=== PATIENT | male | born 1960 | race Caucasian/White ===

== ENCOUNTER 2016-08-12 08:20 | Inpatient (IN) | payer BC ==
[2016-08-12] VITALS (385 sets, daily range): BP systolic 120–128; BP diastolic 77–84; PULSE 89–95; TEMP 98.6–99.7; O2SAT 79–98
[~2016-08-12] VITALS: Ht 170.2 cm; Wt 92.3 kg
[2016-08-12 09:38] LABS: HEMATOCRIT 51.4 % (42.0-52.0); MEAN CELL VOLUME 93 fl (80.0-100.0); MEAN CORPUSCULAR HEMOGLOBIN 34 pg (27.0-31.0); MEAN CORPUSCULAR HGB CONC 36 g/dl (33.0-37.0); MEAN PLATELET VOLUME 10.8 fl (7.4-10.4); PLATELET COUNT 106 K/mm3 (130-400); RED BLOOD COUNT 5.53 M/mm3 (4.20-5.60); REDCELL DISTRIBUTION WIDTH-CV 12.4 % (11.5-14.5)
[2016-08-12 09:45] LABS: INR 1.2 (0.8-3.0); PROTHROMBIN TIME 13.2 SECONDS (9.7-12.8)
[2016-08-12 09:46] LABS: ADJUSTED CALCIUM 8.7 mg/dL (8.4-10.2); ALANINE AMINOTRANSFERASE 100 U/L (21-72); ALBUMIN 4.3 gm/dL (3.5-5.0); ALKALINE PHOSPHATASE 95 U/L (50-136); ANION GAP 17 mmol/L (7-16); BILIRUBIN,TOTAL 1.9 mg/dL (0.0-1.0); BLOOD UREA NITROGEN 21 mg/dL (9-20); CALCIUM 8.9 mg/dL (8.4-10.2); CARBON DIOXIDE 19 mmol/L (22-30); CHLORIDE 97 mmol/L (98-107); GLUCOSE 118 mg/dL (74-106); POTASSIUM 4.1 mmol/L (3.4-5.0); SODIUM 133 mmol/L (137-145); TOTAL PROTEIN 8.4 gm/dL (6.4-8.2)
[2016-08-12 09:50] LABS: HEMOGLOBIN 18.7 g/dl (13.5-18.0)
[2016-08-12 09:51] LABS: ADD PATHOLOGY DIFF REVIEW NO
[2016-08-12 09:58] LABS: TROPONIN-I < 0.012 ng/mL (0.000-0.034)
[2016-08-12 10:20] LABS: BAND 32 % (0-10); NEUTROPHILS 29 % (42.0-75.2); TOTAL CELLS COUNTED 100
[2016-08-12 13:23] LABS: INFLUENZA B NEGATIVE
[2016-08-13] VITALS (837 sets, daily range): BP systolic 106–126; BP diastolic 66–90; PULSE 58–81; TEMP 97.4–98.9; O2SAT 84–98
[2016-08-13 05:43] LABS: ADD PATHOLOGY DIFF REVIEW NO
[2016-08-13 05:49] LABS: MEAN CELL VOLUME 97 fl (80.0-100.0); MEAN CORPUSCULAR HEMOGLOBIN 34 pg (27.0-31.0); MEAN CORPUSCULAR HGB CONC 35 g/dl (33.0-37.0); MEAN PLATELET VOLUME 10.5 fl (7.4-10.4); PLATELET COUNT 78 K/mm3 (130-400); RED BLOOD COUNT 4.86 M/mm3 (4.20-5.60); WHITE BLOOD COUNT 4.6 K/mm3 (4.8-10.8)
[2016-08-13 05:53] LABS: HEMOGLOBIN 16.6 g/dl (13.5-18.0)
[2016-08-13 05:56] LABS: ADJUSTED CALCIUM 8.2 mg/dL (8.4-10.2); ALANINE AMINOTRANSFERASE 88 U/L (21-72); ALBUMIN 3.6 gm/dL (3.5-5.0); ALKALINE PHOSPHATASE 88 U/L (50-136); ANION GAP 13 mmol/L (7-16); BILIRUBIN,TOTAL 1.1 mg/dL (0.0-1.0); BLOOD UREA NITROGEN 13 mg/dL (9-20); CALCIUM 7.9 mg/dL (8.4-10.2); CARBON DIOXIDE 22 mmol/L (22-30); CHLORIDE 102 mmol/L (98-107); GLUCOSE 94 mg/dL (74-106); POTASSIUM 3.8 mmol/L (3.4-5.0); SODIUM 137 mmol/L (137-145); TOTAL PROTEIN 7.1 gm/dL (6.4-8.2)
[2016-08-13 06:11] LABS: TROPONIN-I < 0.012 ng/mL (0.000-0.034)
[2016-08-13 07:32] LABS: BAND 22 % (0-10); NEUTROPHILS 35 % (42.0-75.2); TOTAL CELLS COUNTED 100
[2016-08-14] VITALS (374 sets, daily range): BP systolic 108–133; BP diastolic 56–113; PULSE 60–92; TEMP 97.4–98.4; O2SAT 85–98
[2016-08-15 03:24] VITALS: BP 130/99; PULSE 65; TEMP 97.4
[2016-08-15 07:22] VITALS: BP 129/90; PULSE 74; TEMP 97.3
[2016-08-15 12:06] VITALS: BP 138/90; PULSE 85
[2016-08-15 15:15] VITALS: BP 134/81; PULSE 89; TEMP 98.1
[2016-08-15 20:16] VITALS: BP 149/77; PULSE 80; TEMP 98.4
[2016-08-15 23:11] VITALS: BP 131/84; PULSE 80; TEMP 97.9
[2016-08-16 03:28] VITALS: BP 144/50; PULSE 70; TEMP 97.6
[2016-08-16 08:23] VITALS: BP 128/92; PULSE 51; TEMP 98.4
[2016-08-16 10:58] VITALS: BP 139/91; PULSE 71; TEMP 97.9
[2016-08-16 15:28] VITALS: BP 144/95; PULSE 87; TEMP 97.3
[2016-08-16 20:32] VITALS: BP 134/86; PULSE 82; TEMP 97.7
[2016-08-16 23:37] VITALS: BP 127/82; PULSE 74; TEMP 97.8
[2016-08-17 04:03] VITALS: BP 111/89; PULSE 72; TEMP 97.6
[2016-08-17 08:39] VITALS: BP 121/87; PULSE 79; TEMP 97.5
[2016-08-17] MEDS ORDERED: ELIQUIS 5MG PO (10:40)
[2016-08-17] MEDS ORDERED: BETAPACE 80MG80 MG PO (10:41)
[2016-08-17] MEDS ORDERED: ASPIRIN E.C. 8181 MG PO (10:43)
[2016-08-17] MEDS ORDERED: PREDNISONE 5MG5 MG PO (10:44)
[2016-08-17] MEDS ORDERED: RT ADVAIR HFA 1112 G IH (10:45)
[2016-10-09] MEDS ORDERED: ELIQUIS 5MG PO (07:59)
[2016-10-09] MEDS ORDERED: ASPIRIN E.C. 8181 MG PO (08:11)
[2016-10-09] MEDS ORDERED: BETAPACE160 MG PO (08:12)
== END 2016-08-17 12:26 | disposition home or self-care (01) | DRG 308 ==
LOC: COL.ER 08:20 → IMCU 10:33 → MEDICAL 10:33
PROVIDERS: Family Medicine; Internal Medicine
PROC: 5A2204Z Restoration of Cardiac Rhythm, Single (ICD-10-PCS; principal; 2016-08-14)
DX: I48.0 Paroxysmal atrial fibrillation (principal); E43 Unspecified severe protein-calorie malnutrition; J44.1 Chronic obstructive pulmonary disease with (acute) exacerbation; F17.210 Nicotine dependence, cigarettes, uncomplicated; E66.01 Morbid (severe) obesity due to excess calories; Z68.32 Body mass index [BMI] 32.0-32.9, adult; M19.042 Primary osteoarthritis, left hand; M19.041 Primary osteoarthritis, right hand
CPT/HCPCS: 99223-AI; 99231-AI; 99232-AI; 99238; A9502; J0696; J1450; J1650; J1940; J2250; J2270; J2704; J2765; J2785; J2930; J7030; J7050; J7512; Q9967

== ENCOUNTER → 2016-10-09 | Day surgery (SDC) | payer BC ==
[~2016-10-09] VITALS: Ht 170.2 cm; Wt 93.0 kg
[2016-10-09] VITALS (12 sets, daily range): BP systolic 103–140; BP diastolic 70–95; PULSE 55–72; TEMP 97.7
[~2016-10-09] MED LIST: ASPIRIN E.C. 8181 MG PO; BETAPACE 80MG80 MG PO; BETAPACE160 MG PO; ELIQUIS 5MG PO; PREDNISONE 5MG5 MG PO; PREVACID24HROTC PO; RT ADVAIR HFA 1112 G IH
[2016-10-09 08:31] LABS: INR 1.2 (0.8-3.0); PROTHROMBIN TIME 13.3 SECONDS (9.7-12.8)
[2016-10-09 08:34] LABS: POTASSIUM 4.2 mmol/L (3.4-5.0)
[2016-10-09 09:06] LABS: THYROID STIMULATING HORMONE 1.71 uIU/mL (0.465-4.680)
== END | disposition home or self-care (01) ==
LOC: COL.CAR 07:23
PROVIDERS: Internal Medicine Cardiovascular Disease
DX: I48.0 Paroxysmal atrial fibrillation (principal); I51.7 Cardiomegaly; G47.33 Obstructive sleep apnea (adult) (pediatric); J43.9 Emphysema, unspecified; Z79.01 Long term (current) use of anticoagulants; Z87.891 Personal history of nicotine dependence; Z82.49 Family history of ischemic heart disease and other diseases of the circulatory system
CPT/HCPCS: J2250; J3010; J7030

== ENCOUNTER 2016-10-28 11:09 | Emergency (ER) | payer BC ==
[~2016-10-28] VITALS: Ht 170.2 cm; Wt 93.2 kg
[~2016-10-28 11:09] MED LIST changes: -PREVACID24HROTC PO
[2016-10-28 11:12] VITALS: TEMP 97
[2016-10-28 11:39] LABS: BASO # 0.1 (0.0-0.2); BASO % 0.5 % (0.0-2.0); EOS % 0.3 % (0-4.0); GRAN # 10.7 (1.4-6.5); GRAN % 75.3 % (42.2-75.2); LYMPH # 2.2 (1.2-3.4); LYMPH % 15.7 % (20.0-51.0); MEAN CELL VOLUME 96 fl (80.0-100.0); MEAN CORPUSCULAR HGB CONC 36 g/dl (33.0-37.0); MEAN PLATELET VOLUME 9.5 fl (7.4-10.4); MONO # 1.1 (0.1-0.6); MONO % 7.8 % (1.7-9.3); PLATELET COUNT 254 K/mm3 (130-400); RED BLOOD COUNT 5.65 M/mm3 (4.20-5.60); REDCELL DISTRIBUTION WIDTH-CV 12.2 % (11.5-14.5); WHITE BLOOD COUNT 14.2 K/mm3 (4.8-10.8)
[2016-10-28 11:40] LABS: HEMATOCRIT 54.4 % (42.0-52.0); HEMOGLOBIN 19.6 g/dl (13.5-18.0); MEAN CORPUSCULAR HEMOGLOBIN 35 pg (27.0-31.0)
[2016-10-28 12:22] LABS: ADJUSTED CALCIUM 8.4 mg/dL (8.4-10.2); ALANINE AMINOTRANSFERASE 62 U/L (21-72); ALBUMIN 4.6 gm/dL (3.5-5.0); ALKALINE PHOSPHATASE 108 U/L (50-136); ANION GAP 19 mmol/L (7-16); BILIRUBIN,TOTAL 1.7 mg/dL (0.0-1.0); BLOOD UREA NITROGEN 12 mg/dL (9-20); CALCIUM 8.9 mg/dL (8.4-10.2); CARBON DIOXIDE 19 mmol/L (22-30); CHLORIDE 103 mmol/L (98-107); GLUCOSE 143 mg/dL (74-106); POTASSIUM 4.4 mmol/L (3.4-5.0); SODIUM 140 mmol/L (137-145); TOTAL PROTEIN 7.9 gm/dL (6.4-8.2)
[2016-10-28 12:34] LABS: B-TYPE NATRIURETIC PEPTIDE 349 pg/mL (0-125)
[2016-10-28 12:36] LABS: TROPONIN-I < 0.012 ng/mL (0.000-0.034)
[2016-10-28 13:18] LABS: LIPASE 572 U/L (23-300)
[2016-10-28] MEDS ORDERED: PREVACID24HROTC PO (15:28)
[2016-10-28 15:30] VITALS: BP 149/109; PULSE 65
== END 2016-10-28 15:51 | disposition home or self-care (01) ==
LOC: COL.ER 11:09
PROVIDERS: Emergency Medicine
DX: R07.9 Chest pain, unspecified (principal); K85.90 Acute pancreatitis without necrosis or infection, unspecified; I48.91 Unspecified atrial fibrillation; R11.0 Nausea; Z79.01 Long term (current) use of anticoagulants; R19.7 Diarrhea, unspecified
CPT/HCPCS: C9113; J2270; J2550; J7030

== ENCOUNTER 2018-05-12 10:13 | Inpatient (IN) | payer BC ==
[~2018-05-12] VITALS: Ht 170.2 cm; Wt 88.0 kg
[2018-05-12] VITALS (355 sets, daily range): BP systolic 136–162; BP diastolic 108; PULSE 51–113; TEMP 98–98.5; O2SAT 87–94
[~2018-05-12 10:13] MED LIST changes: +PREVACID24HROTC PO
[2018-05-12] MEDS ORDERED: GLUCOPHAGE500 MG/TAB PO (10:42)
[2018-05-12] MEDS ORDERED: DOXYCYCLINE HY100 MG PO (10:42)
[2018-05-12 11:48] LABS: BASO # 0.1 (0.0-0.2); BASO % 0.5 % (0.0-2.0); EOS % 0.1 % (0-4.0); GRAN # 10.3 (1.4-6.5); GRAN % 81.3 % (42.2-75.2); LYMPH # 1.2 (1.2-3.4); LYMPH % 9.6 % (20.0-51.0); MEAN CELL VOLUME 97 fl (80.0-100.0); MEAN CORPUSCULAR HGB CONC 35 g/dl (33.0-37.0); MEAN PLATELET VOLUME 9.9 fl (7.4-10.4); MONO % 8.1 % (1.7-9.3); PLATELET COUNT 189 K/mm3 (130-400); RED BLOOD COUNT 5.66 M/mm3 (4.20-5.60); REDCELL DISTRIBUTION WIDTH-CV 11.5 % (11.5-14.5)
[2018-05-12 11:55] LABS: HEMATOCRIT 55.1 % (42.0-52.0); HEMOGLOBIN 19.5 g/dl (13.5-18.0); MEAN CORPUSCULAR HEMOGLOBIN 34 pg (27.0-31.0)
[2018-05-12 11:58] LABS: CREATININE, serum 0.54 mg/dL (0.66-1.25); POTASSIUM 4.6 mmol/L (3.4-5.0); TOTAL PROTEIN 8.1 gm/dL (6.4-8.2)
[2018-05-12 12:45] LABS: COLLECTION METHOD CLEAN CATCH
[2018-05-12 12:51] LABS: MUCOUS Present /lpf; PH 7 (5-8); SQUAMOUS EPITHELIAL 0-2 /hpf; URINE APPEARANCE Clear; URINE BACTERIA None Seen /hpf; URINE BILIRUBIN Negative (NEGATIVE); URINE BLOOD 1+ (NEGATIVE); URINE COLOR Yellow; URINE GLUCOSE 3+ (NEGATIVE); URINE KETONE Trace (NEGATIVE); URINE LEUKOCYTE ESTERASE Negative (NEGATIVE); URINE NITRATE Negative (NEGATIVE); URINE PROTEIN(semi-quant) 3+ (NEGATIVE); URINE RBC 0-2 /hpf; URINE UROBILINOGEN Negative (NEGATIVE)
[2018-05-12 15:05] LABS: INR 1.3 (0.8-3.0); PROTHROMBIN TIME 14.9 SECONDS (9.7-12.8)
[2018-05-12 15:07] LABS: PARTIAL THROMBOPLASTIN TIME 46.4 SECONDS (26.0-37.0)
[2018-05-12 15:24] LABS: MAGNESIUM 1.3 mg/dL (1.6-2.3)
[2018-05-12 15:43] LABS: TROPONIN-I 0.018 ng/mL (0.000-0.034)
--- NOTE | 2018-05-12 16:00 | NUR ---
Patient arrives from ED. He ambulates in room. VS WNL. HR 110 and irregular. Cardizem gtt infusing at 5 mg/hr. Patient oriented to room and call light. Will continue to monitor.
--- NOTE | 2018-05-12 17:25 | NUR ---
Spoke with Dr. Clark regarding consult. Orders received to initiate sotalol tonight, keep npo at midnight, echo tomorrow and plan for poss. cardioversion tomorrow if patient remains in afib.
--- NOTE | 2018-05-12 19:01 | NUR ---
Bedside report given to NIC Hicks. Patient lying in bed VS WNL. He c/o abdominal pain and then states he is "starving." Plan of care discussed. Care turned over at this time.
--- NOTE | 2018-05-12 19:03 | NUR ---
Bedside report received from NIC Tong.
--- NOTE | 2018-05-12 20:00 | NUR ---
Shift assessment complete at this time. Patient continues to complain of pain in his abdomen in the epigastric region. Rates pain a 5-6/10 consistently. Patient has no other needs at this time. Will continue to monitor, Call light within reach.
[2018-05-13] VITALS (749 sets, daily range): BP systolic 85–133; BP diastolic 60–102; PULSE 61–90; TEMP 97.3–98.7; O2SAT 79–100
--- NOTE | 2018-05-13 | NUR ---
Patient resting in bed at this time. Still has complaints of pain rated 5/10 in the abdomen. Morphine provided. No other needs at this time. Will continue to monitor. Call light within reach.
--- NOTE | 2018-05-13 04:00 | NUR ---
Patient awake at this time resting in bed. Complaints of 5/10 pain in his abdomen continuously. Morphine to be provided. Patient has no other needs at this time. Will continue to monitor. Call light within reach.
[2018-05-13 05:36] LABS: BASO # 0.1 (0.0-0.2); BASO % 0.7 % (0.0-2.0); EOS # 0.2 (0.0-0.7); EOS % 1.7 % (0-4.0); GRAN # 8.1 (1.4-6.5); GRAN % 68.3 % (42.2-75.2); HEMATOCRIT 51.1 % (42.0-52.0); LYMPH # 2.2 (1.2-3.4); LYMPH % 18.2 % (20.0-51.0); MEAN CORPUSCULAR HGB CONC 34 g/dl (33.0-37.0); MEAN PLATELET VOLUME 9.8 fl (7.4-10.4); MONO # 1.2 (0.1-0.6); MONO % 10.4 % (1.7-9.3); PLATELET COUNT 186 K/mm3 (130-400); RED BLOOD COUNT 4.97 M/mm3 (4.20-5.60); REDCELL DISTRIBUTION WIDTH-CV 12.1 % (11.5-14.5)
[2018-05-13 05:37] LABS: HEMOGLOBIN 17.1 g/dl (13.5-18.0); MEAN CORPUSCULAR HEMOGLOBIN 34 pg (27.0-31.0)
[2018-05-13 05:38] LABS: MEAN CELL VOLUME 103 fl (80.0-100.0)
[2018-05-13 05:47] LABS: ALBUMIN 3.3 gm/dL (3.5-5.0); BILIRUBIN,TOTAL 3.1 mg/dL (0.0-1.0); CALCIUM 7.6 mg/dL (8.4-10.2); CREATININE, serum 0.68 mg/dL (0.66-1.25); MAGNESIUM 1.3 mg/dL (1.6-2.3); POTASSIUM 4.1 mmol/L (3.4-5.0)
--- NOTE | 2018-05-13 07:05 | NUR ---
Bedside report given to NIC Moody
--- NOTE | 2018-05-13 09:52 | NUR ---
All sedation meds were administered as VORB with Eduardo KENDALL at bedside for elective CV. View Procedure Event Log (Paper) in chart with Eduardo KENDALL and Sedation RN signatures for procedure events. Pt tolerated procedure will with no complications. NSR noted on bedside monitor. 12 Lead EKG Obtained. Plan for pt to transfer to floor
--- NOTE | 2018-05-13 10:16 | NUR ---
Plan:Return home with DTR Michelle Cruz . PT denies having DPOA and declined setup. Assess: PT reports that he resided here in town and uses a nebulizer daily but no medical equip. PCP-Unknown follow-up stated to be with Dr Clark. Action: Continue to follow care.
--- NOTE | 2018-05-13 12:57 | NUR ---
Pt states discomfort in abdomen with mild nausea after eating 100% if clear liquid tray. Emesis bag provided. Will continue to monitor.
--- NOTE | 2018-05-13 14:09 | NUR ---
Telephone report given to Reuben LUCERO. Pt to transfer to room 307
--- NOTE | 2018-05-13 14:36 | NUR ---
Pt arrived on Medical Unit. Pt ambulated to wheel chair for transport. Pt ambulated without assistance from wheelchair back to bed in Rm 307. Reuben LUCERO at bedside to recieve pt.
--- NOTE | 2018-05-13 18:36 | NUR ---
Since arriving to the floor the pt has been resting quietly. He has had intermittent pain in his ABD. Pain medication administered on JUL. Pt is sitting up in the bed watching TV at this time and he denies further needs. Call light within reach.
--- NOTE | 2018-05-13 22:19 | NUR ---
pt resting in bed. reports pian 10/10 in abd abd back, causing nausea. pain causing pt to waken from sleep. prn meds given. tele on. pt reports loose stool at the consistancy of liquid q 3-4 hours. pt reports no needs at this time. call light in reach
[2018-05-14] VITALS (10 sets, daily range): BP systolic 100–136; BP diastolic 50–99; PULSE 73–107; TEMP 97–97.7
[2018-05-14 00:14] LABS: FOLATE (FOLIC ACID) 19.7 ng/mL (7.0-31.4)
--- NOTE | 2018-05-14 01:09 | NUR ---
pt urnine is a dark [place]ber[place]. small amounts at a time.
[2018-05-14 02:04] LABS: COLLECTION METHOD CLEAN CATCH
[2018-05-14 02:14] LABS: MUCOUS Present /lpf; PH 5 (5-8); SQUAMOUS EPITHELIAL 0-2 /hpf; URINE APPEARANCE Clear; URINE BACTERIA None Seen /hpf; URINE BILIRUBIN Positive (NEGATIVE); URINE BLOOD 2+ (NEGATIVE); URINE COLOR Amber; URINE GLUCOSE Negative (NEGATIVE); URINE KETONE Negative (NEGATIVE); URINE LEUKOCYTE ESTERASE Negative (NEGATIVE); URINE NITRATE Negative (NEGATIVE); URINE PROTEIN(semi-quant) 2+ (NEGATIVE); URINE UROBILINOGEN >=4.0 mg/dL (NEGATIVE)
[2018-05-14 06:06] LABS: BASO # 0.1 (0.0-0.2); BASO % 0.6 % (0.0-2.0); EOS # 0.3 (0.0-0.7); GRAN % 63.7 % (42.2-75.2); HEMATOCRIT 47.8 % (42.0-52.0); HEMOGLOBIN 15.7 g/dl (13.5-18.0); LYMPH # 2.4 (1.2-3.4); LYMPH % 22.3 % (20.0-51.0); MEAN CELL VOLUME 105 fl (80.0-100.0); MEAN CORPUSCULAR HEMOGLOBIN 34 pg (27.0-31.0); MEAN CORPUSCULAR HGB CONC 33 g/dl (33.0-37.0); MEAN PLATELET VOLUME 10.2 fl (7.4-10.4); MONO % 9.5 % (1.7-9.3); PLATELET COUNT 171 K/mm3 (130-400); RED BLOOD COUNT 4.56 M/mm3 (4.20-5.60); REDCELL DISTRIBUTION WIDTH-CV 11.9 % (11.5-14.5)
[2018-05-14 06:21] LABS: ALBUMIN 3.2 gm/dL (3.5-5.0); BILIRUBIN,TOTAL 3.9 mg/dL (0.0-1.0); CALCIUM 7.1 mg/dL (8.4-10.2); CREATININE, serum 0.61 mg/dL (0.66-1.25); MAGNESIUM 1.8 mg/dL (1.6-2.3); POTASSIUM 4.1 mmol/L (3.4-5.0); TOTAL PROTEIN 6.8 gm/dL (6.4-8.2)
--- NOTE | 2018-05-14 07:50 | NUR ---
Assessment complete. Pt is AXO X3, states he has pain in his L flank area rated at a 5/10. Breathing is even and unlabored on room air. Tele on. RH infusing, remains free of complications, and is CDI. Pt is sitting up in the bed watching TV at this time and he denies further needs. Call light within reach, will continue to monitor.
--- NOTE | 2018-05-14 18:16 | NUR ---
Pt has been resting on and off throughout the day. Has had constant pain in his back and ABD. Pain medication administered on JUL. Pt is sitting up in the chair watching TV at this time and he denies further needs. Call light within reach.
--- NOTE | 2018-05-14 19:00 | NUR ---
Report given to NIC Griffith.
--- NOTE | 2018-05-14 23:12 | NUR ---
pt resting in bed, reports 8-910 lower flank pain bilaateral side. prn meds given. pt A+Ox4. stated "at this point, tomorrow i would like to eat rather than pain meds"
[2018-05-15] VITALS (8 sets, daily range): BP systolic 116–138; BP diastolic 78–97; PULSE 60–88; TEMP 97.6–98.3
--- NOTE | 2018-05-15 | NUR ---
shift assessment complete, pt sleeping in bed. A+Ox4. pt reports no needs at this time. call light in reach
--- NOTE | 2018-05-15 05:43 | NUR ---
pt had an unevenful night. had a BM. 6-8/10 pain in back. pt slept off and on throughout night. urine is dark. pt reports no needs at this time. call light in reach
--- NOTE | 2018-05-15 06:44 | NUR ---
reports given to Dana LUCERO.
--- NOTE | 2018-05-15 07:40 | NUR ---
Pt is A+Ox3, pleasant, c/o sharp pain to abdomen, worsened with movement, pain meds provided. Physical assessment completed. IV to RH s redness/swelling. Discussed NPO, bowel rest, pancreatitis, and afib patho and treatment. All questions answered. No further needs, call light in reach
--- NOTE | 2018-05-15 12:42 | NUR ---
pT observed sleeping several times, he reports waking suddenly in pain. He is hungry and wants food, but understands NPO status and bowel rest reasoning. Call [facility]
--- NOTE | 2018-05-15 14:00 | NUR ---
Report given to Reuben LUCERO. Pt has been asking for pain meds regularly through shift, rests in between doses. No further needs, vitals stable, pt n afib but asymptomatic
--- NOTE | 2018-05-15 17:45 | NUR ---
Since taking over cares the pt has been resting quietly. He has had constant pain to his ABD. Pain medication administered on JUL. Pt is sitting up in the bed watching TV at this time and he denies further needs. Call light within reach.
--- NOTE | 2018-05-15 19:27 | NUR ---
Report given to NIC Quiros.
[2018-05-16] VITALS (12 sets, daily range): BP systolic 100–153; BP diastolic 76–118; PULSE 57–112; TEMP 97.4–98.5
--- NOTE | 2018-05-16 01:37 | NUR ---
THE PT HAD C\O PAIN WHEN BEDSIDE REPORT WAS DONE, JAYDEN GAVE HIM A DOSE OF MEDS. REPOSITIONED HIS IV IT HAD SLIGHTLY CRIMPED. FLUSHES WELL. PROCALAMINE RUNNING. THE PT STATED THAT HE HASN'T EATEN IN DAYS AND WANTS TO EAT. THE PT IS NPO, ACCUCHECK WAS 119, THEN 111. HE STATED THAT HE WONDERS HOW IT WILL SPIKE WHEN HE IS ALLOWED TO EAT. HE VERBALIZED THAT HE HAD DIARRHEA X 2. HE WAS UP TO THE BR WITHOUT ASSIST, GAIT STEADY. HE CALLS FOR MORE DILAUDID ABOUT Q 2 - 3 HRS. RATING HIS PAIN FROM A 4-8\10. TELE CONTINUES A FIB, 90-105. HE APPEARS TO SLEEP IN NAPS.
--- NOTE | 2018-05-16 03:12 | NUR ---
THE PT AROUSED BRIEFLY WHEN NEW BOTTLE OF PROCANAMINE HUNG. HAD VOIDED, URINAL EMPTIED.
--- NOTE | 2018-05-16 05:05 | NUR ---
BEDRESTING WITH EYES CLOSED, SIDE LYING.
[2018-05-16 05:58] LABS: BASO % 0.3 % (0.0-2.0); EOS # 0.3 (0.0-0.7); EOS % 2.5 % (0-4.0); GRAN % 70.6 % (42.2-75.2); HEMATOCRIT 48.8 % (42.0-52.0); HEMOGLOBIN 16.4 g/dl (13.5-18.0); LYMPH # 1.5 (1.2-3.4); LYMPH % 15.1 % (20.0-51.0); MEAN CELL VOLUME 102 fl (80.0-100.0); MEAN CORPUSCULAR HEMOGLOBIN 34 pg (27.0-31.0); MEAN CORPUSCULAR HGB CONC 34 g/dl (33.0-37.0); MEAN PLATELET VOLUME 9.9 fl (7.4-10.4); MONO # 1.1 (0.1-0.6); PLATELET COUNT 174 K/mm3 (130-400); RED BLOOD COUNT 4.77 M/mm3 (4.20-5.60); REDCELL DISTRIBUTION WIDTH-CV 11.6 % (11.5-14.5)
[2018-05-16 06:13] LABS: ALBUMIN 3.3 gm/dL (3.5-5.0); BILIRUBIN,TOTAL 2.6 mg/dL (0.0-1.0); CALCIUM 7.4 mg/dL (8.4-10.2); CREATININE, serum 0.51 mg/dL (0.66-1.25); MAGNESIUM 1.8 mg/dL (1.6-2.3); POTASSIUM 4.3 mmol/L (3.4-5.0); TOTAL PROTEIN 6.8 gm/dL (6.4-8.2)
--- NOTE | 2018-05-16 07:16 | NUR ---
THE PT HAD C\O PAIN AT ABOUT 615ISH, DILAUDID IV GIVEN AGAIN. THE PT VERBALIZED OF HIS FAMILY AND OF HIS MOVE HERE FROM [place]. HE IS CONSERNED ABOUT HIS HEALTH CHANGES AND IS HOPEFUL THAT HE CAN SOON FEEL BETTER AND BE ABLE TO TOLERATE FOOD.
--- NOTE | 2018-05-16 10:30 | NUR ---
Pt is A+Ox3, pleasant, c/o sharp stabbing pain in abdomen worsened with movement, meds provided per orders. Physical assessment completed. IV to RFA s redness/swelling at site. pt c/o 3 episodes liquid diarrhea today. call light in reach, no furtehr needs
--- NOTE | 2018-05-16 17:30 | NUR ---
pt had uneventful day. C/o pain to abdomen, required meds almost q2 with some increased spacing. Pt states he;s hungry, but reluctantly complies to NPO. CT abdomen obtained today, GI consulted. Pt IV s redness/swelling, procalamine running at 100cc/hr. Education provided on diabetes patho, consequences of chronic hyperglycemia, sx of hypo and hyperglycemia, treatments for each, eating protein with carbs, etc. Pt verablized understanding, all questions answered. Vitals stable with elevated diastolic BP, new meds ordered. Call light in reach. Pt denies furtehr needs
--- NOTE | 2018-05-16 19:07 | NUR ---
rEPORT GIVEN TO Yudy LUCERO, PT denies needs, aid getting vitals
--- NOTE | 2018-05-16 20:57 | NUR ---
PT RESTING IN BED a+oX4. REPORTS PAIN IN ABD. LIQUID STOOL. TELE ON. SHIFT ASSESSMENT COMPLETE. NO NEEDS AT THIS TIME. CALL LIGHT INREACH
--- NOTE | 2018-05-16 23:07 | NUR ---
PT REPORTED FEELING HOT THEN COLD. NO FEVER. VITALS STABLE. 8/10 PAIN, PRN MEDS GIVEN
[2018-05-17] VITALS (7 sets, daily range): BP systolic 110–138; BP diastolic 69–99; PULSE 58–90; TEMP 97.4–98.4
--- NOTE | 2018-05-17 01:44 | NUR ---
pt continues to have loose stool. pain 8/10, prn meds given. 4-5/10 after pain meds. pain is in the abd and lower back. reports no pain. call light in reach
--- NOTE | 2018-05-17 03:53 | NUR ---
PT REPORTS ANOTHER LIQUID STOOL. PAIN, 8/10- PRN MEDS GIVEN. NO NEEDS AT THIS TIME.
--- NOTE | 2018-05-17 05:41 | NUR ---
pt had an uneventful night. c/o pain throughout night. prn pain meds given. no needs call light in reach
[2018-05-17 06:15] LABS: CALCIUM 8.2 mg/dL (8.4-10.2); CREATININE, serum 0.54 mg/dL (0.66-1.25); MAGNESIUM 1.8 mg/dL (1.6-2.3); PHOSPHOROUS 2.7 mg/dL (2.5-4.5)
--- NOTE | 2018-05-17 07:18 | NUR ---
reports given to NIC Cortez
--- NOTE | 2018-05-17 07:40 | NUR ---
pT is A+Ox3, pleasant, c/o sharp stabbing pain that wakens him, centered in abdomen adn worsened with movement. meds provided per orders. Pt in afib on tele, BP has improved since yesterday. Pt denies SOB, on RA. Pt denies nausea, asking for food, ordered clear tray. Still having loose stools. IV to LWrist s redness/swelling. Denies further needs, call light in reach.
--- NOTE | 2018-05-17 16:00 | NUR ---
Pt was begging for solid food, he tolerated his clears today with no nausea or abdominal complaints. THis RN called Dr Dickerson nd Dr Murphy who gave permission to advance diet, see new order. THis RN encouraged a small meal.
--- NOTE | 2018-05-17 19:44 | NUR ---
Through shift pt vitals remain stable but in Afib, new meds initiated. Pt continues to have pain and request meds Q2-Q3. Pain has moved to bilateral lower back, sharp stabbing pain. IV s redness at site, slight swelling but pt denies pain and IV flushes easily, will monitor. Pt c/o eating dinner too fast and he now has a slight belly ache. Liquid [facility], no further needs, reprot given to Gladis LUCERO
--- NOTE | 2018-05-17 19:57 | NUR ---
PT RESTING IN BED. PAIN 8/10, PRN MEDS GIVEN. NO NEEDS AT THIS TIME. CALL LIGHT IN REACH
--- NOTE | 2018-05-17 23:53 | NUR ---
pt iv was red, slight swelling. and some disconfort. this nurse stopped medication, removed IV, catheter tip intact. started 20g iv in left hand. flushes well, no redness or swelling
--- NOTE | 2018-05-18 00:01 | NUR ---
urine is light yellow.
[2018-05-18 02:53] VITALS: BP 118/81; PULSE 70; TEMP 97.4
--- NOTE | 2018-05-18 05:31 | NUR ---
pt slept throught night. c/o pain in abd abd back, prn meds given. no needs at this time. call light in reach
[2018-05-18 06:14] LABS: BASO # 0.1 (0.0-0.2); BASO % 0.7 % (0.0-2.0); EOS # 0.3 (0.0-0.7); GRAN # 4.8 (1.4-6.5); GRAN % 55.7 % (42.2-75.2); HEMATOCRIT 50.8 % (42.0-52.0); HEMOGLOBIN 17.5 g/dl (13.5-18.0); LYMPH # 2.1 (1.2-3.4); LYMPH % 24.9 % (20.0-51.0); MEAN CELL VOLUME 101 fl (80.0-100.0); MEAN CORPUSCULAR HEMOGLOBIN 35 pg (27.0-31.0); MEAN CORPUSCULAR HGB CONC 34 g/dl (33.0-37.0); MEAN PLATELET VOLUME 10.3 fl (7.4-10.4); MONO # 1.3 (0.1-0.6); MONO % 14.9 % (1.7-9.3); PLATELET COUNT 177 K/mm3 (130-400); RED BLOOD COUNT 5.04 M/mm3 (4.20-5.60); REDCELL DISTRIBUTION WIDTH-CV 11.9 % (11.5-14.5)
[2018-05-18 06:24] LABS: ALBUMIN 3.6 gm/dL (3.5-5.0); BILIRUBIN,TOTAL 1.4 mg/dL (0.0-1.0); CALCIUM 8.6 mg/dL (8.4-10.2); CREATININE, serum 0.58 mg/dL (0.66-1.25); MAGNESIUM 1.7 mg/dL (1.6-2.3); PHOSPHOROUS 3.9 mg/dL (2.5-4.5); POTASSIUM 4.1 mmol/L (3.4-5.0); TOTAL PROTEIN 7.2 gm/dL (6.4-8.2)
[2018-05-18 06:30] LABS: PRE ALBUMIN 10.2 mg/dL (17.6-36.0)
[2018-05-18 08:20] VITALS: BP 135/96; PULSE 52; TEMP 98.5
--- NOTE | 2018-05-18 08:45 | NUR ---
Assessment complete. Pt is AXO X3, states he has pain in his ABD rated at a 5/10. Breathing is even and unlabored on room air. Tele on. LH INT flushes easily, remains free of complications, and is CDI. Pt is sitting up in the bed finishing his breakfast at this time and he denies further needs. Call light within reach, will continue to monitor.
[2018-05-18 12:45] VITALS: BP 124/83; PULSE 83; TEMP 97.4
[2018-05-18 16:06] VITALS: BP 105/73; PULSE 76; TEMP 97.5
--- NOTE | 2018-05-18 18:29 | NUR ---
Pt has been resting on and off throughout the day. He has had a constant pain in his ABD. Pain medication administered on JUL. Pt is sitting up in the bed watching TV at this time and he denies further needs. Call light within reach.
--- NOTE | 2018-05-18 19:24 | NUR ---
Report given to NIC Cadena.
[2018-05-18 20:07] VITALS: BP 123/71; PULSE 77; TEMP 98
--- NOTE | 2018-05-18 21:08 | NUR ---
Patient resting in bed, assessment completed. C/O abdominal pain, given PRN percocet. No other needs at this time.
[2018-05-19] VITALS (12 sets, daily range): BP systolic 97–127; BP diastolic 63–80; PULSE 53–74; TEMP 97.5–98.4
--- NOTE | 2018-05-19 04:12 | NUR ---
Patient c/o abdominal pain, 5-6/10. Given PRN percocet.
--- NOTE | 2018-05-19 05:22 | NUR ---
Patient slept on/off last night. Pain controlled with Percocet. NPO at midnight in preparation for cardioversion this am. No other needs at this time.
[2018-05-19 06:21] LABS: CREATININE, serum 0.62 mg/dL (0.66-1.25); MAGNESIUM 1.6 mg/dL (1.6-2.3); PHOSPHOROUS 4.8 mg/dL (2.5-4.5); POTASSIUM 4.1 mmol/L (3.4-5.0)
--- NOTE | 2018-05-19 08:03 | NUR ---
Pt left the floor at this time for procedure.
--- NOTE | 2018-05-19 08:25 | NUR ---
ALL MEDICATIONS GIVEN WITH VERBAL ORDER AND READBACK TO MD. SEE MERGE FOR MEDICATION ADMIN TIMES.
--- NOTE | 2018-05-19 09:59 | NUR ---
Assessment complete. Pt is drowsy but arrousable to voice. States he has pain in his ABD rated at a 3/10. Breathing is even and unlabored on room air. Tele on. LH INT flushes easily, remains free of complications, and is CDI. Pt is resting quietly in the bed at this time and he denies further needs. Call light within reach, will continue to monitor.
--- NOTE | 2018-05-19 10:56 | NUR ---
JANN met with the patient to review discharge plan. The patient had a cardioversion done today, 05/19. The patient states that he still plans to return home with his daughter upon discharge. SW to continue to follow.
--- NOTE | 2018-05-19 19:40 | NUR ---
Pt has been resting on and off throughout the day. Has has intermittent pain in his ABD. Pain medication administered on JUL. HR monitered on tele post cardioversion. Pt is resting quielty in the bed and he denies further needs. Call light within reach. Report given to NIC Cadena.
--- NOTE | 2018-05-19 22:01 | NUR ---
Patient resting in bed. Assessment completed, denies pain. Medications administered. IV site flushed. No other needs at this time.
[2018-05-20 00:14] VITALS: BP 117/81; PULSE 70; TEMP 96.8
[2018-05-20 03:22] VITALS: BP 114/77; PULSE 65; TEMP 98.8
--- NOTE | 2018-05-20 05:23 | NUR ---
Patient slept on/off last night. Pain controlled with percocet. VSS, no other needs at this time.
[2018-05-20 08:06] LABS: BASO # 0.1 (0.0-0.2); BASO % 0.8 % (0.0-2.0); EOS # 0.3 (0.0-0.7); GRAN # 4.4 (1.4-6.5); GRAN % 56.4 % (42.2-75.2); HEMATOCRIT 50.5 % (42.0-52.0); HEMOGLOBIN 17.1 g/dl (13.5-18.0); LYMPH # 1.8 (1.2-3.4); LYMPH % 23.7 % (20.0-51.0); MEAN CELL VOLUME 103 fl (80.0-100.0); MEAN CORPUSCULAR HEMOGLOBIN 35 pg (27.0-31.0); MEAN CORPUSCULAR HGB CONC 34 g/dl (33.0-37.0); MEAN PLATELET VOLUME 10.2 fl (7.4-10.4); MONO # 1.1 (0.1-0.6); MONO % 14.6 % (1.7-9.3); PLATELET COUNT 155 K/mm3 (130-400); RED BLOOD COUNT 4.92 M/mm3 (4.20-5.60); REDCELL DISTRIBUTION WIDTH-CV 11.9 % (11.5-14.5)
[2018-05-20 08:11] LABS: ALBUMIN 3.5 gm/dL (3.5-5.0); CREATININE, serum 0.62 mg/dL (0.66-1.25); POTASSIUM 4.6 mmol/L (3.4-5.0)
[2018-05-20 08:34] VITALS: BP 111/82; PULSE 65; TEMP 97.4
--- NOTE | 2018-05-20 09:23 | NUR ---
Patient sitting up in bed upon entering room. Is alert and pleasant when visiting with staff. Stated he was experiencing pain at a 5/10, PRN pain medication offered and accepted. Patient verbalizes he would like to be discharged today. Other morning medications administered, takes without difficulty. Offered assistance with any cares or concerns and verbalized he had no neeed.
--- NOTE | 2018-05-20 09:26 | NUR ---
Initial assessment completed. NIC Tranarchitect in training and assisting with medications and cares this morning. This nurse agrees with the assessment completed by NIC Tran.
[2018-05-20] MEDS ORDERED: TOPROL XL 50MG50 MG PO (11:14)
[2018-05-20] MEDS ORDERED: NORVASC 5MG5 MG/TAB PO (11:14)
[2018-05-20] MEDS ORDERED: FOLIC ACID 11 MG/TA1 PO (11:15)
[2018-05-20] MEDS ORDERED: NATURE'S BLEND100 M2 PO (11:15)
[2018-05-20] MEDS ORDERED: MULTI VITAMINS1 TAB PO (11:16)
[2018-05-20] MEDS ORDERED: MAG-OX 400400 MG/TAB PO (11:20)
[2018-05-20] MEDS ORDERED: AMARYL1 MG PO (11:21)
[2018-05-20 11:29] VITALS: BP 115/76; PULSE 63; TEMP 97.1
[2018-05-20] MEDS ORDERED: GLUCOPHAGE1000 MG PO (12:46)
[2018-05-20] MEDS ORDERED: PACERONE400 MG PO (12:48)
--- NOTE | 2018-05-20 17:28 | NUR ---
Patient discharged home at 1610, Assisted to elevator by staff to meet daughter at front entrance.
== END 2018-05-20 19:29 | disposition home or self-care (01) | DRG 439 ==
LOC: COL.ER 10:13 → ICU 12:50 → MEDICAL 12:50 → ICU 12:50 → MEDICAL 05-13 14:38
PROVIDERS: Emergency Medicine; Internal Medicine; Nurse Practitioner Family; Physician Assistant; ADMIT Hospitalist
DX: K85.90 Acute pancreatitis without necrosis or infection, unspecified (principal); I42.8 Other cardiomyopathies; I48.2 Chronic atrial fibrillation; E11.65 Type 2 diabetes mellitus with hyperglycemia; Z87.891 Personal history of nicotine dependence; I10 Essential (primary) hypertension; R19.7 Diarrhea, unspecified; J44.9 Chronic obstructive pulmonary disease, unspecified; K70.30 Alcoholic cirrhosis of liver without ascites; F10.10 Alcohol abuse, uncomplicated; Y90.0 Blood alcohol level of less than 20 mg/100 ml
CPT/HCPCS: 99222-AI; 99231-AI; 99232-AI; 99233-AI; 99239; J1170; J1815; J2250; J2270; J2405; J3010; J3475; J7030; Q9967